=== PATIENT | female | born 1985 | race Caucasian/White ===

== ENCOUNTER 2022-08-28 15:34 | Emergency (ER) | payer OTHER, SELFPAY ==
[2022-08-28 15:43] VITALS: BP 137/76; PULSE 93; RESP 18; TEMP 36.6; O2SAT 99
--- NOTE | 2022-08-28 15:58 | ED.GENADULT ---
HPI - General Adult General Chief complaint: Upper Respiratory Infection Stated complaint: sore throat up to ear Source: patient Mode of arrival: ambulatory Limitations: no limitations History of Present Illness HPI narrative: Patient presents for evaluation of sore throat. She indicates ten days ago she had some nausea. Five days ago she developed a sore throat on the left side. Three days she developed a sore throat on the right. Pain radiates into her right ear. No fever, chills, cough, shortness of breath. No recent sick contacts to her knowledge. She does not smoke. No additional complaints or concerns. Related Data Home Medications Medication Instructions Recorded Confirmed Nexium 1 tab-cap PO DAILY 08/28/22 08/28/22 iron,carbonyl 30 mg-vitamin C 10 1 tablet PO DAILY 08/28/22 08/28/22 mg-FOS 25 mg chewable tablet (Chewable Iron) norethindrone 1 mg-ethinyl 1 tablet PO DAILY 08/28/22 08/28/22 estradiol 10 mcg (24)-iron 10 mcg(2) tablet (Lo Loestrin Fe) Allergies Allergy/AdvReac Type Severity Reaction Status Date / Time No Known Allergies Allergy Mild Verified 08/28/22 15:41 Review of Systems Review of Systems: CONSTITUTIONAL: Denies fever, chills, or sweats. EYES: Denies visual changes, redness, or discharge. ENT: Reports right-sided sore throat with radiation into the right ear CARDIOVASCULAR: Denies chest pain, palpitations, or edema. RESPIRATORY: Denies cough or dyspnea. GASTROINTESTINAL: Reports recent nausea, now resolved. Denies abdominal pain, vomiting, or diarrhea. GENITOURINARY: Denies dysuria or hematuria. SKIN: Denies rash or itching. MUSCULOSKELETAL: Denies back pain, joint pain, or myalgia. NEUROLOGIC: Denies headache, numbness, dizziness, or weakness. PSYCHIATRIC: Denies anxiety or depression. [facility] Past Medical History Medical History (Updated 08/28/22 @ 16:04 by SAMANTHA Victor, KELSY) GERD (gastroesophageal reflux disease) Iron deficiency Surgical History Surgical History No pertinent past surgical history Family History Family History Mother Family history non-contributory Social History Social History Smoking status: Never smoker Substance use: never Gender identity (if verbalized by the patient): Female Spiritual care concerns: No Exam Narrative: GENERAL: Well-appearing, well-nourished, and in no acute distress. HEAD: Normocephalic, atraumatic. EYES: PERRLA and EOMI. ENT: Nares clear, no rhinorrhea or epistaxis. Mucous membranes moist. bilateral tonsillar swelling, right greater than left. There is posterior pharyngeal erythema without exudate. Uvula is midline. Bilateral TMs pearly torrez nonbulging NECK: Supple. No adenopathy or masses. No carotid bruits or JVD CHEST: Clear to auscultation. No respiratory distress. No wheezes rales or rhonchi HEART: Regular rate and rhythm. No murmur heard. Normal peripheral pulses. ABDOMEN: Soft, nontender, nondistended, normal active bowel sounds. EXTREMITIES: Normal range of motion. No edema. SKIN: Warm, dry, no rash. NEURO: No focal deficits. Alert and oriented x3. PSYCH: Normal mood and affect. Course Course Emergency Course: This is a 36-year-old female who presented for evaluation of sore throat. Rapid strep positive. There does not appear to be a peritonsillar abscess. Will treat with amoxicillin and prednisone. Increase hydration. [id number] agents for symptom management. Follow up with primary provider. Go to the ER for worsening symptoms. Patient in agreement with plan of care for Level of Care: Express Care Visit Vital Signs Vital signs: Vital Signs Temperature 36.6 C 08/28/22 15:43 Pulse Rate 93 08/28/22 15:43 Respiratory Rate 18 08/28/22 15:43 Blood Pressure 137/76 08/28/22
== END 2022-08-28 16:13 | disposition home or self-care (01) ==
PROVIDERS: Emergency Provider Nurse Practitioner
DX: J02.9 Acute pharyngitis, unspecified (principal)
CPT/HCPCS: 87880; 99213; G0463